=== PATIENT | male | born 1985 | race Two or more races ===

== ENCOUNTER 2023-07-27 15:23 | Emergency (ER) | payer BC ==
[~2023-07-27] VITALS: Ht 172.7 cm; Wt 81.8 kg
[2023-07-27 15:29] VITALS: BP 129/81; PULSE 78; RESP 14; TEMP 98.8; O2SAT 98
[2023-07-27] MEDS: LIDOcaine/epinephrine/tetracaine TOPICAL sol 3 ML syringe TOP ONE (16:03)
[2023-07-27] MEDS: TETanus/Pertussis (Acell)/Diphther VAC/PF (Tdap-Adult) 0.5ml syringe IMVAC ONE (16:04)
[2023-07-27] MEDS ORDERED: CEPH500C2 PO (16:33)
[2023-07-27] MEDS: LIDOcaine 1% 30ml preserv. free vial IJ STA (17:10)
== END 2023-07-27 17:51 | disposition home or self-care (01) ==
LOC: ER 15:24
DX: S61.316A Laceration without foreign body of right little finger with damage to nail, initial encounter (principal); Z23 Encounter for immunization; W20.8XXA Other cause of strike by thrown, projected or falling object, initial encounter; Y93.89 Activity, other specified; Y92.89 Other specified places as the place of occurrence of the external cause; Y99.8 Other external cause status
CPT/HCPCS: 11760; 73140; 90471; 90715; 99285; A6222; J3490; A6258

== ENCOUNTER 2023-08-11 14:04 | Emergency (ER) | payer BC ==
[~2023-08-11] VITALS: Ht 172.7 cm; Wt 79.0 kg
[2023-08-11 14:27] VITALS: BP 111/60; PULSE 74; RESP 16; O2SAT 96
[2023-08-11 16:39] VITALS: TEMP 98.2
== END 2023-08-11 16:41 | disposition home or self-care (01) ==
LOC: ER 14:05
DX: S61.216D Laceration without foreign body of right little finger without damage to nail, subsequent encounter (principal); X58.XXXD Exposure to other specified factors, subsequent encounter
CPT/HCPCS: 99281